=== PATIENT | female | born 1965 | race Two or more races ===

== ENCOUNTER 2020-09-13 11:32 | Outpatient (REF) | payer OTHER, SELFPAY ==
[2020-09-13 13:44] LABS: MANUAL DIFF FLAG NO
[2020-09-13 13:57] LABS: Basophils Absolute Auto 0.1 X10*3/uL (0.0-0.2); Basophils Percent Auto 0.7 % (0-2); Eosinophils Absolute Auto 0.2 X10*3/uL (0.0-0.4); Eosinophils Percent Auto 2.8 % (0-4); Hematocrit 40.3 % (37-47); Hemoglobin 12.9 g/dl (12.0-16.0); Imm Gran Abs Auto 0.02 X10*3/uL (0.00-0.03); Imm Gran Pct Auto 0.3 % (0.0-0.4); Lymphocytes Absolute Auto 1.5 X10*3/uL (1.2-4.9); Lymphocytes Percent Auto 21.3 % (20-40); Mean Corpuscular Hemoglobin 29.7 pg (27.0-33.0); Mean Corpuscular Volume 92.6 fL (80-98); Mean Platelet Volume 11.7 fL (9.4-12.3); Monocytes Absolute Auto 0.5 X10*3/uL (0.1-1.2); Monocytes Percent Auto 6.7 % (2-11); Neutrophils Absolute Auto 4.7 X10*3/uL (2.0-8.3); Neutrophils Percent Auto 68.2 % (45-73); Platelet Count 285 X10*3/uL (160-400); Red Blood Count 4.35 X10*6/uL (4.20-5.50); Red Cell Distribution Width 12.8 % (11.0-16.0); White Blood Count 6.8 X10*3/uL (4.8-10.8)
[2020-09-13 14:30] LABS: Alanine Aminotransferase 37 U/L (0-31); Albumin Level 4.4 g/dL (3.5-5.0); Alkaline Phosphatase 88 U/L (39-117); Anion Gap 11 (12-20); Aspartate Amino Transferase 28 U/L (5-31); Bilirubin Total 0.2 mg/dL (0.0-1.0); Blood Urea Nitrogen 16 mg/dL (9-16); C Reactive Protein 0.13 mg/dL (< or = 0.50); Carbon Dioxide 26 mmol/L (22-29); Chloride 108 mmol/L (96-108); Estimated Glomerular Filt Rate > 60; Glucose Random 80 mg/dL (60-115); Potassium 4.4 mmol/l (3.3-5.1); Sodium 141 mmol/L (135-145); Total Protein 6.8 g/dL (6.5-8.0)
[2020-09-13 14:32] LABS: Calcium 9.9 mg/dL (8.4-10.2)
[2020-09-13 14:42] LABS: Thyroid Stimulating Hormone 2.07 mIU/mL (0.32-4.0); Vitamin D 25-OH Total 24.4 ng/mL (>30)
== END 2020-09-13 11:33 | disposition home or self-care (01) ==
LOC: HO.10HDL 11:32
PROVIDERS: Visit Provider Internal Medicine
DX: R42 Dizziness and giddiness (principal); E78.00 Pure hypercholesterolemia, unspecified; E55.9 Vitamin D deficiency, unspecified; K21.9 Gastro-esophageal reflux disease without esophagitis; M79.89 Other specified soft tissue disorders
CPT/HCPCS: 36415; 80053; 82306; 84439; 84443; 85025; 86140

== ENCOUNTER 2020-11-13 11:47 | Outpatient (REF) | payer OTHER, SELFPAY ==
--- NOTE | 2020-11-13 | XR_ITS ---
EXAMINATION: PAIN X-RAY BILATERAL CLINICAL INFORMATION: Pain COMPARISON: None TECHNIQUE: 3 views of each hand FINDINGS: Bone alignment is normal. No fracture or dislocation is seen. The joint spaces are normal. Soft tissues are normal. XR/XR hand RT min 3V IMPRESSION: Unremarkable exam.
--- NOTE | 2020-11-13 | XR_ITS ---
EXAMINATION: PAIN X-RAY BILATERAL CLINICAL INFORMATION: Pain COMPARISON: None TECHNIQUE: 3 views of each hand FINDINGS: Bone alignment is normal. No fracture or dislocation is seen. The joint spaces are normal. Soft tissues are normal. XR/XR hand LT min 3V IMPRESSION: Unremarkable exam.
== END 2020-11-13 11:48 | disposition home or self-care (01) ==
LOC: HO.XRAY 11:47
PROVIDERS: PCP Internal Medicine; Visit Provider Internal Medicine
DX: Z20.828 Contact with and (suspected) exposure to other viral communicable diseases (principal); M79.642 Pain in left hand; M79.641 Pain in right hand
CPT/HCPCS: 73130

== ENCOUNTER 2020-11-13 13:18 | Outpatient (REF) | payer OTHER, SELFPAY | END 2020-11-13 13:19 | disposition home or self-care (01) | LOC: HO.LNP 13:18 | PROVIDERS: Visit Provider Internal Medicine | DX: M79.642 Pain in left hand (principal); M79.641 Pain in right hand; Z20.828 Contact with and (suspected) exposure to other viral communicable diseases | CPT/HCPCS: U0003 ==

== ENCOUNTER 2020-11-26 12:20 | Outpatient (REF) | payer OTHER, SELFPAY ==
--- NOTE | 2020-11-26 12:27 | XR_ITS ---
EXAMINATION: XR CHEST CLINICAL INFORMATION: Cough, COPD. COMPARISON: None TECHNIQUE: 2 views of the chest were obtained. FINDINGS: No significant abnormality is noted involving the heart, lungs, mediastinum, bony thorax or soft tissues. XR/XR chest 2V IMPRESSION: Unremarkable chest examination.
[2020-11-26 15:19] LABS: Influenza A PCR NEGATIVE (Negative); Influenza B PCR NEGATIVE (Negative); Resp Syncy Virus RNA Qual PCR NEGATIVE (Negative); SARS COV2 PCR INHOUSE NEGATIVE (Negative)
== END 2020-11-26 12:21 | disposition home or self-care (01) ==
LOC: HO.XRAY 12:20
PROVIDERS: PCP Internal Medicine; Visit Provider Internal Medicine
DX: Z20.828 Contact with and (suspected) exposure to other viral communicable diseases (principal); R51.9 Headache, unspecified; R05 Cough
CPT/HCPCS: 0241U; 71046

== ENCOUNTER 2021-08-21 06:48 | Outpatient (REF) | payer OTHER, SELFPAY ==
--- NOTE | ~2021-08-21 | XR_ITS ---
EXAMINATION: XR THORACIC SPINE CLINICAL INFORMATION: Neck pain. Assess for DDD COMPARISON: None TECHNIQUE: 3 views of the thoracic spine were obtained. FINDINGS: There is no fracture or bone destruction seen and the vertebral alignment is normal. At the upper thoracic levels there is suggestion of minimal disc space loss and degenerative endplate change. There is no abnormality of the paraspinal soft tissues. XR/XR thoracic spine 3V IMPRESSION: Mild disc space narrowing and endplate changes at the upper thoracic levels. No acute abnormality.
[2021-08-21 07:49] LABS: Anion Gap 13 (12-20); Blood Urea Nitrogen 16 mg/dL (9-16); C Reactive Protein 0.23 mg/dL (< or = 0.50); Calcium 9.6 mg/dL (8.4-10.2); Carbon Dioxide 23 mmol/L (22-29); Chloride 109 mmol/L (96-108); Estimated Glomerular Filt Rate > 60; Glucose Random 117 mg/dL (60-115); Potassium 4.2 mmol/L (3.3-5.1); Sodium 141 mmol/L (135-145)
[2021-08-21 08:13] LABS: Free T4 (Free Thyroxine) 0.88 ng/dL (0.71-1.85); Thyroid Stimulating Hormone 3.34 uIU/mL (0.32-4.0); Vitamin D 25-OH Total 20.2 ng/mL (>30)
== END 2021-08-21 06:49 | disposition home or self-care (01) ==
LOC: HO.LAB 06:48
PROVIDERS: PCP Internal Medicine; Visit Provider Internal Medicine
DX: M54.9 Dorsalgia, unspecified (principal); E55.9 Vitamin D deficiency, unspecified; K21.9 Gastro-esophageal reflux disease without esophagitis; E03.9 Hypothyroidism, unspecified
CPT/HCPCS: 36415; 72072; 80048; 82306; 84439; 84443; 86140

== ENCOUNTER 2021-10-07 13:58 | Outpatient (REF) | payer OTHER, SELFPAY | END 2021-10-07 13:59 | disposition home or self-care (01) | LOC: HO.LAB 13:58 | PROVIDERS: PCP Internal Medicine; Visit Provider Internal Medicine | DX: Z20.822 Contact with and (suspected) exposure to COVID-19 (principal) | CPT/HCPCS: C9803; U0003; U0005 ==

== ENCOUNTER 2021-11-07 17:00 | Emergency (ER) | payer OTHER, SELFPAY | END 2021-11-07 19:44 | disposition left against medical advice (07) | PROVIDERS: Emergency Provider Emergency Medicine; PCP Internal Medicine | DX: R05.9 Cough, unspecified (principal) ==

== ENCOUNTER 2021-11-08 12:44 | Outpatient (REF) | payer OTHER, SELFPAY ==
--- NOTE | ~2021-11-08 | XR_ITS ---
EXAMINATION: XR CHEST CLINICAL INFORMATION: Cough. COMPARISON: 11/26/2020. TECHNIQUE: 2 views of the chest were obtained. FINDINGS: No significant abnormality is noted involving the heart, lungs, mediastinum, bony thorax or soft tissues. XR/XR chest 2V IMPRESSION: No acute cardiopulmonary process.
== END 2021-11-08 12:45 | disposition home or self-care (01) ==
LOC: HO.HMGCX 12:44
PROVIDERS: PCP Internal Medicine; Visit Provider Physician Assistant Medical
DX: R05.9 Cough, unspecified (principal)
CPT/HCPCS: 71046

== ENCOUNTER 2021-11-08 15:03 | Outpatient (REF) | payer OTHER, SELFPAY ==
[2021-11-08 16:22] LABS: Influenza A PCR NEGATIVE (Negative); Influenza B PCR NEGATIVE (Negative); Resp Syncy Virus RNA Qual PCR NEGATIVE (Negative); SARS COV2 PCR INHOUSE POSITIVE (Negative)
== END 2021-11-08 15:04 | disposition home or self-care (01) ==
LOC: HO.LNP 15:03
PROVIDERS: Visit Provider Physician Assistant Medical
DX: Z20.822 Contact with and (suspected) exposure to COVID-19 (principal); J02.9 Acute pharyngitis, unspecified
CPT/HCPCS: 0241U

== ENCOUNTER 2021-12-25 10:53 | Outpatient (REF) | payer OTHER, SELFPAY ==
[2021-12-25 13:32] LABS: MANUAL DIFF FLAG NO
[2021-12-25 13:33] LABS: Basophils Absolute Auto 0.1 X10*3/uL (0.0-0.2); Basophils Percent Auto 0.8 % (0-2); Eosinophils Absolute Auto 0.1 X10*3/uL (0.0-0.4); Eosinophils Percent Auto 1.4 % (0-4); Hematocrit 39.9 % (37.0-47.0); Hemoglobin 12.8 g/dl (12.0-16.0); Imm Gran Abs Auto 0.03 X10*3/uL (0.00-0.03); Imm Gran Pct Auto 0.4 % (0.0-0.4); Lymphocytes Absolute Auto 1.5 X10*3/uL (1.2-4.9); Lymphocytes Percent Auto 18.8 % (20-40); Mean Corpuscular HGB Conc 32.1 g/dl (31.0-35.0); Mean Corpuscular Hemoglobin 29.6 pg (27.0-33.0); Mean Corpuscular Volume 92.4 fL (80.0-98.0); Mean Platelet Volume 11.5 fL (9.4-12.3); Monocytes Absolute Auto 0.5 X10*3/uL (0.1-1.2); Monocytes Percent Auto 5.9 % (2-11); Neutrophils Absolute Auto 5.8 x10*3/uL (2.0-8.3); Neutrophils Percent Auto 72.7 % (45-73); Platelet Count 253 X10*3/uL (160-400); Red Blood Count 4.32 X10*6/uL (4.20-5.50); Red Cell Distribution Width 13.2 % (11.0-16.0)
[2021-12-25 13:56] LABS: Alanine Aminotransferase 41 U/L (0-31); Alkaline Phosphatase 85 U/L (39-117); Anion Gap 10 (12-20); Aspartate Amino Transferase 27 U/L (5-31); Bilirubin Total 0.2 mg/dL (0.0-1.0); Blood Urea Nitrogen 12 mg/dL (9-16); C Reactive Protein 0.21 mg/dL (< or = 0.50); Carbon Dioxide 25 mmol/L (22-29); Chloride 107 mmol/L (96-108); Estimated Glomerular Filt Rate > 60; Glucose Random 84 mg/dL (60-115); Potassium 4.2 mmol/L (3.3-5.1); Sodium 138 mmol/L (135-145); Total Protein 6.6 g/dL (6.5-8.0)
[2021-12-25 14:13] LABS: Free T4 (Free Thyroxine) 0.91 ng/dL (0.71-1.85); Vitamin D 25-OH Total 24.1 ng/mL (>30)
== END 2021-12-25 10:54 | disposition home or self-care (01) ==
LOC: HO.10HDL 10:53
PROVIDERS: Visit Provider Internal Medicine
DX: R63.4 Abnormal weight loss (principal); K21.9 Gastro-esophageal reflux disease without esophagitis; E55.9 Vitamin D deficiency, unspecified; R94.6 Abnormal results of thyroid function studies; Z86.16 Personal history of COVID-19
CPT/HCPCS: 36415; 80053; 82306; 84439; 84443; 85025; 86140

== ENCOUNTER 2022-12-03 17:20 | Emergency (ER) | payer OTHER, SELFPAY ==
[2022-12-03 18:29] VITALS: BP 137/79; PULSE 98; RESP 20; TEMP 36.9; O2SAT 99; BMI 22.6
[2022-12-03 19:20] LABS: Influenza A PCR NEGATIVE (Negative); Influenza B PCR NEGATIVE (Negative); Resp Syncy Virus RNA Qual PCR NEGATIVE (Negative); SARS COV2 PCR INHOUSE NEGATIVE (Negative)
[2022-12-04 00:17] VITALS: BP 138/81; PULSE 97; RESP 18; TEMP 36.3; O2SAT 97
--- NOTE | 2022-12-04 00:37 | ED.URI ---
HPI - URI/Sore Throat General Chief Complaint: Upper Respiratory Symptoms Stated Complaint: 3 day cough/ Fever/ Body aches Time Seen by Provider: 12/04/22 00:31 Source: patient Mode of arrival: ambulatory Limitations: no limitations History of Present Illness HPI Narrative: Patient comes to the emergency room complaining of 3 days of cough, body aches, subjective fever. Denies nausea vomiting diarrhea or abdominal pain. No UTI symptoms. Related Data Home Medications Medication Instructions Recorded Confirmed atorvastatin 20 mg tablet 20 mg PO DAILY 11/08/21 fluticasone propionate 50 spray intranasal 11/08/21 mcg/actuation nasal spray,suspension mirtazapine 15 mg tablet 15 mg PO BEDTIME 11/08/21 naproxen 500 mg tablet 500 mg PO BID 11/08/21 omeprazole 20 mg capsule,delayed 20 mg PO DAILY 11/08/21 release Previous Rx's Medication Instructions Recorded azithromycin 250 mg tablet See Rx Instructions PO .COMPLEX #6 11/08/21 tabs dextromethorphan-guaifenesin 10 10 ml PO Q4-6H PRN cough #237 mL 11/08/21 mg-100 mg/5 mL oral syrup (Adult Tussin DM) codeine 10 mg-guaifenesin 100 mg/5 10 ml PO Q4-6H PRN cough #118 mL 12/04/22 mL oral liquid ibuprofen 600 mg tablet 600 mg PO Q8H PRN fever or pain 12/04/22 #20 tabs Allergies Allergy/AdvReac Type Severity Reaction Status Date / Time No Known Allergies Allergy Verified 11/08/21 12:11 [No Known Allergies*] Review of Systems Review of Systems: Constitutional : No Weight loss, complaining of fever, fatigue, body aches ENT/Mouth : No Hearing loss, No Ear Pain, No Nasal Congestion, No Sinus Pain, No Hoarseness, No sore throat, No Rhinorrhea, No Swallowing Difficulty Eyes: No Eye Pain, No Swelling, No Redness, No Foreign Body, No Discharge, No Vision Changes Cardiovascular : No Chest Pain, No SOB, No Dyspnea on Exertion, No Orthopnea, No Edema, No Palpitations Respiratory : Complaining of dry Cough, No Sputum, No Wheezing, No Smoke Exposure, No Dyspnea Gastrointestinal : No Nausea, No Vomiting, No Diarrhea, No Constipation, No abdominal Pain, No Hematochezia, No Melena Genitourinary : no irregular bleeding, No Dysuria, No Urinary Frequency, No Hematuria, No Urinary Incontinence, No Urgency, No Flank Pain, No Urinary Flow Changes, No Hesitancy Musculoskeletal : No joint pain, complaining of Myalgias, No Joint Swelling Skin : No Skin Lesions, No rash Neuro : No Weakness, No Numbness, No Paresthesias, No Loss of Consciousness, No Dizziness, No Headache Psych : No Anxiety/Panic, No Depression, No SI/HI/AH/VH, No Social Issues, Heme/Lymph: No Bruising, No Bleeding,No Lymphadenopathy Endocrine : No Polyuria, No Polydipsia, No Temperature Intolerance [facility] Social History Social History Advance Directives: No Advance Directives Information Provided: Yes Physical Exam Vital Signs: Vital Signs: Last Vital Signs Temp 97.3 F 12/04/22 00:17 Pulse 97 12/04/22 00:17 Resp 18 12/04/22 00:17 BP 138/81 12/04/22 00:17 Pulse Ox 97 12/04/22 00:17 O2 Del Method 12/04/22 00:17 BMI result Body Mass Index 22.6 Const: Other: Appearance: Alert. Oriented X3. No acute distress. Well-appearing Eyes: Pupils equal, round and reactive to light. ENT: Pharynx normal. Neck: Normal inspection. Neck supple. No lymph nodes noted. No crepitus CVS: Normal heart rate and rhythm. Pulses normal. Normal S1 and S2 Respiratory: No respiratory distress. Breath sounds normal. No Wheezing. No rales Abdomen: Soft and nontender. No rigidity. No distention. Skin: Skin warm and dry. Normal skin color. Normal skin turgor. Extremities: No lower extremity edema. No Lacerations. No Rash Neuro: Oriented X 3. No motor deficit. No sensory deficit. Moving all extremities. No slurred speech. CN 2 through 12 grossly intact Psych: calm, cooperative, normal affect Course Course Course Narrative: I discussed with the patient she tested negative for COVID and influenza. Patient's oxygen saturation 99% on room air, normal respirations, clear lung sounds. No fever Patient was given Tessalon Perles, p.o. dexamethasone and viscous lidocaine for symptomatic relief. Medical Decision Making Differential Diagnosis Differential Diagnoses: The differential diagnosis associated with the presentation includes (Viral URI, influenza, COVID) Lab Data MDM Lab Attestation statement: I reviewed the patient's lab results. Labs: Lab Results 12/03/22 Range/Units 18:36 Influenza Type A (PCR) NEGATIVE (Negative) Influenza Type B (PCR) NEGATIVE (Negative) RSV RNA Qual (PCR) NEGATIVE (Negative) SARS-CoV-2 RNA (RT-PCR) NEGATIVE (Negative) Discharge Plan Discharge Clinical Impression: Acute bronchitis, viral Patient Disposition: Home, Self-Care Instructions: Acute Bronchitis (ED) Additional Instructions: Please follow-up with your primary care physician tomorrow. If you have any worsening or new symptoms, please return to the emergency room or call 911 Prescriptions: New codeine-guaifenesin 10-100 mg/5 mL liquid 10 ml PO Q4-6H PRN (Reason: cough) Qty: 118 0RF Rx Instructions: Keep away from children ibuprofen 600 mg tablet 600 mg PO Q8H PRN (Reason: fever or pain) Qty: 20 0RF No Action fluticasone propionate 50 mcg/actuation spray,suspension intranasal omeprazole 20 mg capsule,delayed release(DR/EC) 20 mg PO DAILY atorvastatin 20 mg tablet 20 mg PO DAILY naproxen 500 mg tablet 500 mg PO BID mirtazapine 15 mg tablet 15 mg PO BEDTIME azithromycin 250 mg tablet See Rx Instructions PO .COMPLEX Qty: 6 0RF Rx Instructions: take 500 mg today (day 1), then 250 mg for 4 days (days 2-5) PO dextromethorphan-guaifenesin [Adult Tussin DM] 10-100 mg/5 mL syrup 10 ml PO Q4-6H PRN (Reason: cough) Qty: 237 0RF Stand Alone Forms: Work/School Release
[2022-12-04] MEDS: Lidocaine HCl Viscous 2 % 15 ML SOLUTION MUCOUS MEM (01:25)
[2022-12-04] MEDS: dexAMETHasone sod phosphate 4 MG/ML VIAL 6 MG IVPUSH (01:25)
[2022-12-04] MEDS: Benzonatate 100 MG CAPSULE PO (01:26)
== END 2022-12-04 01:29 | disposition home or self-care (01) ==
PROVIDERS: Emergency Provider Emergency Medicine; PCP Internal Medicine
DX: J20.8 Acute bronchitis due to other specified organisms (principal); R05.9 Cough, unspecified; R50.9 Fever, unspecified; M79.10 Myalgia, unspecified site; Z20.822 Contact with and (suspected) exposure to COVID-19
CPT/HCPCS: 0241U; 99283; J1100

== ENCOUNTER 2023-05-20 15:09 | Emergency (ER) | payer OTHER, SELFPAY ==
--- NOTE | ~2023-05-20 | XR_ITS ---
EXAMINATION: XR HAND, LEFT CLINICAL INFORMATION: Pain, fall. COMPARISON: Radiograph of the left wrist 05/20/2023. TECHNIQUE: PA, lateral, and oblique views of the left hand. FINDINGS: Cortical irregularity along the dorsal surface of the wrist on the lateral view, stable compared to 05/20/2023 suspicious for a triquetral injury. Stable irregular sclerosis at the scaphoid waist, likely sequela of the nondisplaced fracture. No interval fractures or malalignment. Redemonstration of negative ulnar variance with mild radiocarpal joint space narrowing and subcortical sclerosis. No erosive changes or chondrocalcinosis. No unexpected radiopaque foreign bodies. XR/XR hand LT min 3V IMPRESSION: 1. Suspect triquetral injury and nondisplaced scaphoid fracture, stable compared to 05/20/2023. 2. No interval fractures or malalignment. 3. 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
--- NOTE | ~2023-05-20 | XR_ITS ---
EXAMINATION: LEFT WRIST, LEFT KNEE, AND LEFT ELBOW CLINICAL INFORMATION: Fall with pain COMPARISON: None. TECHNIQUE: Three-view left elbow, 4 view left wrist, 4 view left knee. FINDINGS: Left elbow: There is no evidence of acute fracture or dislocation of the left elbow. No left elbow effusion is appreciated. Joint spaces appear maintained. Left wrist: There is a sclerotic line through the interpolar region of the scaphoid which may be related to previous healed fracture. About the dorsum of the wrist there is a bony density present which may represent avulsion triquetral fracture or possible dorsal lunate fracture. There is some soft tissue swelling seen in this location. This is an age indeterminate finding. There is negative ulnar variance present. There is some mild spurring of the first carpal metacarpal joint. Joint spaces are maintained. Left knee: There is no evidence of acute fracture or dislocation of the left knee. No left knee effusion is appreciated. Left knee joint spaces maintained. XR/XR knee LT 3V IMPRESSION: No bony abnormality of the left knee identified. No acute fracture or effusion of the left elbow identified. Question old scaphoid fracture. Negative ulnar variance. Bony density about the dorsal wrist which may represent avulsion fracture of the triquetrum or a dorsal lunate fracture of uncertain chronicity. Clinical correlation to site of injury and patient history is suggested.
--- NOTE | ~2023-05-20 | XR_ITS ---
EXAMINATION: LEFT WRIST, LEFT KNEE, AND LEFT ELBOW CLINICAL INFORMATION: Fall with pain COMPARISON: None. TECHNIQUE: Three-view left elbow, 4 view left wrist, 4 view left knee. FINDINGS: Left elbow: There is no evidence of acute fracture or dislocation of the left elbow. No left elbow effusion is appreciated. Joint spaces appear maintained. Left wrist: There is a sclerotic line through the interpolar region of the scaphoid which may be related to previous healed fracture. About the dorsum of the wrist there is a bony density present which may represent avulsion triquetral fracture or possible dorsal lunate fracture. There is some soft tissue swelling seen in this location. This is an age indeterminate finding. There is negative ulnar variance present. There is some mild spurring of the first carpal metacarpal joint. Joint spaces are maintained. Left knee: There is no evidence of acute fracture or dislocation of the left knee. No left knee effusion is appreciated. Left knee joint spaces maintained. XR/XR wrist LT min 3V IMPRESSION: No bony abnormality of the left knee identified. No acute fracture or effusion of the left elbow identified. Question old scaphoid fracture. Negative ulnar variance. Bony density about the dorsal wrist which may represent avulsion fracture of the triquetrum or a dorsal lunate fracture of uncertain chronicity. Clinical correlation to site of injury and patient history is suggested.
--- NOTE | ~2023-05-20 | XR_ITS ---
EXAMINATION: LEFT WRIST, LEFT KNEE, AND LEFT ELBOW CLINICAL INFORMATION: Fall with pain COMPARISON: None. TECHNIQUE: Three-view left elbow, 4 view left wrist, 4 view left knee. FINDINGS: Left elbow: There is no evidence of acute fracture or dislocation of the left elbow. No left elbow effusion is appreciated. Joint spaces appear maintained. Left wrist: There is a sclerotic line through the interpolar region of the scaphoid which may be related to previous healed fracture. About the dorsum of the wrist there is a bony density present which may represent avulsion triquetral fracture or possible dorsal lunate fracture. There is some soft tissue swelling seen in this location. This is an age indeterminate finding. There is negative ulnar variance present. There is some mild spurring of the first carpal metacarpal joint. Joint spaces are maintained. Left knee: There is no evidence of acute fracture or dislocation of the left knee. No left knee effusion is appreciated. Left knee joint spaces maintained. XR/XR elbow LT min 3V IMPRESSION: No bony abnormality of the left knee identified. No acute fracture or effusion of the left elbow identified. Question old scaphoid fracture. Negative ulnar variance. Bony density about the dorsal wrist which may represent avulsion fracture of the triquetrum or a dorsal lunate fracture of uncertain chronicity. Clinical correlation to site of injury and patient history is suggested.
[2023-05-20 15:25] VITALS: BP 102/70; PULSE 92; RESP 18; TEMP 36.7; O2SAT 99; BMI 22.6
--- NOTE | 2023-05-20 15:29 | ED.EXTPRO ---
HPI - Extremity Problem General Chief complaint: Extremity Problem Stated complaint: left hand/Work Injury/fall Time Seen by Provider: 05/20/23 17:25 Source: patient, RN notes reviewed and old records reviewed Mode of arrival: ambulatory History of Present Illness HPI Narrative: 57-YEAR-OLD FEMALE WITH NO SIGNIFICANT PAST MEDICAL HISTORY PRESENTING TO THE ED COMPLAINING OF LEFT KNEE, WRIST, AND ELBOW PAIN S/P MECHANICAL SLIP AND FALL AT WORK. 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 DENIES NUMBNESS, TINGLING, WEAKNESS MD Complaint: extremity pain and extremity swelling Related Data Home Medications Medication Instructions Recorded Confirmed atorvastatin 20 mg tablet 20 mg PO DAILY 11/08/21 fluticasone propionate 50 spray intranasal 11/08/21 mcg/actuation nasal spray,suspension mirtazapine 15 mg tablet 15 mg PO BEDTIME 11/08/21 naproxen 500 mg tablet 500 mg PO BID 11/08/21 omeprazole 20 mg capsule,delayed 20 mg PO DAILY 11/08/21 release Previous Rx's Medication Instructions Recorded azithromycin 250 mg tablet See Rx Instructions PO .COMPLEX #6 11/08/21 tabs dextromethorphan-guaifenesin 10 10 ml PO Q4-6H PRN cough #237 mL 11/08/21 mg-100 mg/5 mL oral syrup (Adult Tussin DM) codeine 10 mg-guaifenesin 100 mg/5 10 ml PO Q4-6H PRN cough #118 mL 12/04/22 mL oral liquid ibuprofen 600 mg tablet 600 mg PO Q8H PRN fever or pain 12/04/22 #20 tabs hydrocodone 5 mg-acetaminophen 325 1 tab PO Q8H PRN pain, severe 3 05/20/23 mg tablet days #5 tabs Allergies Allergy/AdvReac Type Severity Reaction Status Date / Time No Known Allergies Allergy Verified 11/08/21 12:11 [No Known Allergies*] Review of Systems Review of Systems: Constitutional: No Fever, No Chills ENT/Mouth: No Ear Pain, No Nasal Congestion, No sore throat, No Rhinorrhea, No Swallowing Difficulty Cardiovascular: No Chest Pain, No SOB Respiratory: No Cough, No Sputum, No Wheezing Gastrointestinal: No Nausea, No Vomiting, No Diarrhea, No Constipation, No Abdominal pain Musculoskeletal: + joint pain, No Myalgias, + Joint Swelling Skin: No Skin Lesions, No rash Neuro: No Weakness, No Numbness, No Paresthesias Yes all other systems are reviewed and are negative Constitutional: Constitutional: Reports as per [facility] Past Medical History Attestation statement: The following information was validated with the patient. Source: old records reviewed Social History Social History Advance Directives: No Advance Directives Information Provided: No Physical Exam Vital Signs: Vital Signs: Last Vital Signs Temp 98.1 F 05/20/23 15:25 Pulse 92 05/20/23 15:25 Resp 18 05/20/23 15:25 BP 102/70 05/20/23 15:25 Pulse Ox 99 05/20/23 15:25 O2 Del Method Room Air 05/20/23 15:25 BMI result Body Mass Index 22.6 Const: General: cooperative, healthy appearing and no acute distress Orientation/consciousness: patient oriented x3 Limitations: no limitations HEENT: Head: Yes normal to inspection and Yes atraumatic Ears: hearing grossly normal bilaterally General nose exam: Normal external nose present Face and sinus: Yes normal facial exam Eyes: General: appearance normal, both eyes and all related structures EOM: EOMs intact bilaterally Neck: Neck: Yes normal visual inspection and Yes no meningeal signs Resp: Effort & Inspection: normal respiratory effort and no respiratory distress Cardio: Rate: regular rate Peripheral pulses: radial pulses present and ulnar radial pulses present Back/Spine/Pelvis: Other: No midline cervical/thoracic/lumbar spinous tenderness/step-off or deformity Skin: Rashes: no rashes Wounds: no wounds Neuro: General: patient oriented x3, tone normal, no meningeal signs, no focal motor deficits and CN's II-XI intact bilaterally Gait exam (Neuro): Normal gait present Extrem: Other: Left shoulder/elbow without noted deformity or tenderness. Full range of motion intact Left wrist and digits with noted swelling to volar aspect and diffuse tenderness to palpation. No erythema/warmth. Limited ROM to wrist and digits secondary to pain. NV intact No snuffbox tenderness Left knee nontender. Full range of motion intact Course Course Course Narrative: This is an RME: Additional HPI, ROS, PE not included below will be deferred to primary provider. 57-year-old female presenting to the emergency department with complaints of left wrist, left elbow, and left knee pain after slip and fall at work. Patient has tenderness palpation diffusely throughout left wrist and left elbow. Able to pronate and supinate. Patient is ambulatory. Plan: X-rays ordered 1800--XR wrist LT min 3V/XR knee LT 3V/XR elbow LT min 3V IMPRESSION: No bony abnormality of the left knee identified. ? No acute fracture or effusion of the left elbow identified. ? Question old scaphoid fracture. ? Negative ulnar variance. ? Bony density about the dorsal wrist which may represent avulsion fracture of the triquetrum or a dorsal lunate fracture of uncertain chronicity. Clinical correlation to site of injury and patient history is suggested. > RESULTS DISCUSSED WITH PATIENT, INITIAL X-RAYS ORDERED IN TRIAGE, RECOMMENDED ADDITIONAL HAND X-RAY. PATIENT AGREEABLE TO OBTAINING X-RAY HOWEVER DOES NOT WANT TO WAIT FOR RESULTS. WILL PLACE PATIENT IN VOLAR SPLINT DUE TO SUSPECTED ACUTE FRACTURE. RECOMMENDED CLOSE ORTHOPEDIC FOLLOW-UP. Medications Administered Discontinued Medications Generic Name Dose Route Start Last Admin Trade Name Panchoq PRN Reason Stop Dose Admin Ibuprofen 800 mg 05/20/23 18:09 05/20/23 18:16 Ibuprofen 800 Mg Tablet PO 05/20/23 18:10 800 mg ONCE ONE Administration Oxycodone HCl 5 mg 05/20/23 18:09 05/20/23 18:16 Oxycodone Hcl Immed Release 5 Mg Tablet PO 05/20/23 18:10 5 mg ONCE ONE Administration Medical Decision Making Medical Decision Making MDM Narrative: 57-YEAR-OLD FEMALE WITH NO SIGNIFICANT PAST MEDICAL HISTORY PRESENTING TO THE ED COMPLAINING OF LEFT KNEE, WRIST, AND ELBOW PAIN S/P MECHANICAL SLIP AND FALL AT WORK. ON EXAM VITAL SIGNS STABLE, NAD, NONTOXIC APPEARING, PHYSICAL EXAM NOTED ABOVE. CONCERN FOR FRACTURE VERSUS SPRAIN. LOW SUSPICION FOR SEPTIC JOINT/ARTHRITIS. UNLIKELY ACUTE SCAPHOID FRACTURE PLAN: X-RAYS Please refer to course for remaining clinical decision making, interpretation of labs/imaging results, and discussions with consultants and/or family members. Differential Diagnosis Differential Diagnoses: The differential diagnosis associated with the presentation includes As above Radiology Impression Discussion of test interpretation with radiology: I have reviewed the radiologist's reading. External Record Review External record reviewed: Inpatient record, Office record, Outpatient record, Prior outpatient labs, Prior outpatient radiology, Primary care record and Outside ED record Tests considered The following testing was considered but not selected: As above Discharge Plan Discharge Clinical Impression: Fracture of triquetral bone of wrist Patient Disposition: Home, Self-Care Instructions: Wrist Fracture in Adults (ED) Additional Instructions: Your x-ray shows an avulsion fracture of your triquetrum or possible your lunate PLEASE KEEP SPLINT ON, DRY AND CLEAN Ice and elevate. 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 If her fingers become increasingly swollen, numb, discolored, or pain is unbearable remove splint return to the ED immediately Meyer radiograf?a muestra bossman fractura por avulsi?n de meyer piramidal o posiblemente meyer semilunar [place] Hielo y eleva. 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 Si rigoberto dedos se vuelven cada vez m?s hinchados, entumecidos, descoloridos o el dolor es insoportable, retire la f?wally y regrese al servicio de urgencias de inmediato. Prescriptions: New hydrocodone-acetaminophen 5-325 mg tablet 1 tab PO Q8H PRN (Reason: pain, severe) 3 Days Qty: 5 0RF Rx Instructions: Partial Fill upon patient request. No Action codeine-guaifenesin 10-100 mg/5 mL liquid 10 ml PO Q4-6H PRN (Reason: cough) Qty: 118 0RF Rx Instructions: Keep away from children ibuprofen 600 mg tablet 600 mg PO Q8H PRN (Reason: fever or pain) Qty: 20 0RF fluticasone propionate 50 mcg/actuation spray,suspension intranasal omeprazole 20 mg capsule,delayed release(DR/EC) 20 mg PO DAILY atorvastatin 20 mg tablet 20 mg PO DAILY naproxen 500 mg tablet 500 mg PO BID mirtazapine 15 mg tablet 15 mg PO BEDTIME azithromycin 250 mg tablet See Rx Instructions PO .COMPLEX Qty: 6 0RF Rx Instructions: take 500 mg today (day 1), then 250 mg for 4 days (days 2-5) PO dextromethorphan-guaifenesin [Adult Tussin DM] 10-100 mg/5 mL syrup 10 ml PO Q4-6H PRN (Reason: cough) Qty: 237 0RF Referrals: [facility] [place] [facility] [place] [facility] [Provider Group] Stand Alone Forms: Work/School Release Interventions: ED Discharge Assessment Last Done: 05/20/23 19:03 Discharge Date/Time: 05/20/23 19:03
--- NOTE | 2023-05-20 17:46 | PC.NURSE ---
Patient presents after a fall at work. Left arm tender, worse to touch, able to move fingers on effected side.
[2023-05-20] MEDS: Ibuprofen 800 MG TABLET PO (18:16)
[2023-05-20] MEDS: oxyCODONE HCl Immed Release 5 MG TABLET PO (18:16)
== END 2023-05-20 19:03 | disposition home or self-care (01) ==
PROVIDERS: Emergency Provider Emergency Medicine; PCP Internal Medicine
DX: S62.112A Displaced fracture of triquetrum [cuneiform] bone, left wrist, initial encounter for closed fracture (principal); W01.0XXA Fall on same level from slipping, tripping and stumbling without subsequent striking against object, initial encounter; M25.562 Pain in left knee; M25.522 Pain in left elbow; Y93.01 Activity, walking, marching and hiking; Y92.512 Supermarket, store or market as the place of occurrence of the external cause; Y99.0 Civilian activity done for income or pay
CPT/HCPCS: 29125; 73080; 73110; 73130; 73562; 99283; 99284

== ENCOUNTER 2023-06-04 10:57 | Outpatient (REF) | payer OTHER, SELFPAY ==
--- NOTE | ~2023-06-04 | XR_ITS ---
EXAMINATION: XR wrist LT w scaphoid CLINICAL INFORMATION: Reason for Exam M25.532 - Pain in left wrist COMPARISON: Hand radiographs 05/20/2023 TECHNIQUE: Four views of the wrist FINDINGS: No acute fracture or dislocation. Previously seen suspected triquetral fracture and nondisplaced scaphoid fracture not discerned with certainty on today's exam. Mild negative ulnar variance. Degenerative changes of the radiocarpal joint. No soft tissue abnormality. XR/XR wrist LT w scaphoid IMPRESSION: 1. No acute fracture or dislocation. Previously seen suspected triquetral fracture and nondisplaced scaphoid fracture not appreciated on radiographs. 2. Degenerative changes of the radiocarpal joint with mild negative ulnar variance.
== END 2023-06-04 10:58 | disposition home or self-care (01) ==
LOC: HO.HOSX 10:57
PROVIDERS: Visit Provider Orthopaedic Surgery
DX: S62.112A Displaced fracture of triquetrum [cuneiform] bone, left wrist, initial encounter for closed fracture (principal)
CPT/HCPCS: 73110; 99202

== ENCOUNTER 2023-07-05 11:14 | Outpatient (AMB) | payer OTHER, SELFPAY ==
[2023-07-05 11:20] VITALS: BMI 22.6
--- NOTE | 2023-07-05 11:20 | A.OFFVIS_ITS ---
Intake Vital Signs 07/05/23 11:20 Height 5 ft 6 in Weight 140 lb BMI 22.6 Intake Visit Reasons: ov-Fracture of triquetral bone of left wrist Intake Note: Lily 57 yr old female presents today for her follow up visit for her Fracture of triquetral bone of left wrist ROM check s/p slipping and falling at work on 05/20/23.?States she wears her brace when working and sleeping. States she has mild pain with movement. Allergies No Known Allergies [No Known Allergies*] Allergy (Verified 07/05/23 11:44) HPI ov-Fracture of triquetral bone of left wrist HPI Details 57-year-old female who returns to the office today with an educational sign language interpreter for a follow-up of left wrist fracture s/p falling at work, 05/20/23. She continues to have mild pain in her wrist with movement. She states she wears the brace with sleeping and while working. 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 Review of Systems Const All systems reviewed & are unremarkable except as noted in HPI and below Physical Exam Vital Signs: BMI result Body Mass Index 22.6 Const General: cooperative, healthy appearing and no acute distress Orientation/consciousness: patient oriented x3 HEENT Head: Yes normocephalic and Yes atraumatic Eyes EOM: EOMs intact bilaterally Resp Effort & Inspection: normal respiratory effort and able to speak in complete sentences Cardio Jugular venous distension: no JVD Skin General skin exam: turgor normal Rashes: no rashes Neuro General: patient oriented x3 Extrem Other: Evaluation of Left Upper Extremity: The patient is alert, oriented, and in no acute distress Neuro: Median, Ulnar, Radial nerves motor and sensory intact and sensation is normal to the tips of all digits Vascular: Cap refill brisk ROM: She can make a fist and extend all her digits Some discomfort with wrist ROM No tenderness over distal ulna 1/10 tenderness over distal radius mild tenderness over the dorsal aspect of triquetrum No scaphoid tubercle tenderness 0-1/10 tenderness over the scaphoid snuffbox Radiographs: 3 views of the left wrist, plus a scaphoid view, were taken and viewed by me today in clinic, and compared to radiographs from 05/20/22. They show evidence of a dorsal triquetral fracture on the lateral view, now with some evidence of interval bony healing. 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 She will continue to wear the brace while working but will also work on increasing activities. I will have her to return in [address] Bell to discuss return to work without restrictions, sooner if needed. Orders: Orders XR wrist LT min 3V Today M25.532 - Pain in left wrist OT Evaluation and Treatment Today S62.112A - Displaced fracture of triquetrum [cuneiform] bone, left wrist, initial encounter for closed fracture Patient Instructions: Scribed for Myla Robbins PA-C, by Marciano Eng medical physicist, on 07/05/2023 at 11:30 AM EST. I, Myla Robbins PA-C, have personally reviewed and agree with the information entered by the scribe. Coding Level of Care Code Global (24587) Diagnoses Fracture of triquetral bone of left wrist S62.112A
== END 2023-07-05 11:44 | disposition home or self-care (01) ==
PROVIDERS: PCP Internal Medicine; Visit Provider Physician Assistant
DX: S62.112A Displaced fracture of triquetrum [cuneiform] bone, left wrist, initial encounter for closed fracture (principal)
CPT/HCPCS: 99214

== ENCOUNTER 2023-07-05 15:32 | Outpatient (REF) | payer OTHER, SELFPAY ==
--- NOTE | ~2023-07-05 | XR_ITS ---
EXAMINATION: XR WRIST, LEFT CLINICAL INFORMATION: Left wrist pain. COMPARISON: 05/20/2023 and 06/04/2023 TECHNIQUE: PA, lateral, and oblique views of the left wrist. FINDINGS: No acute abnormalities. There is mild ulna negative variance. The previously observed dorsal triquetral fracture is no longer identified and likely healed. No new carpal bone injury. The joint spaces of the wrist are maintained. The metacarpophalangeal joints are normal. No erosions or periostitis. No focal soft tissue swelling. XR/XR wrist LT min 3V IMPRESSION: Compared to 05/20/2023, there appears to be interval healing of a dorsal triquetral fracture. No new abnormalities at the left wrist.
== END 2023-07-05 15:33 | disposition home or self-care (01) ==
LOC: HO.HOSX 15:32
PROVIDERS: Visit Provider Physician Assistant
DX: S62.112D Displaced fracture of triquetrum [cuneiform] bone, left wrist, subsequent encounter for fracture with routine healing (principal)
CPT/HCPCS: 73110; 99212

== ENCOUNTER 2023-08-03 08:50 | Outpatient (REF) | payer OTHER, SELFPAY ==
--- NOTE | ~2023-08-03 | XR_ITS ---
EXAMINATION: XR WRIST, LEFT CLINICAL INFORMATION: Pain. COMPARISON: Radiographs dated 07/05/2023. TECHNIQUE: PA, lateral, and oblique views of the left wrist. FINDINGS: Bony alignment and mineralization are normal. A mild ulnar minus variance is seen. No new fracture or dislocation is seen. The previously noted dorsal triquetral fracture again appears healed. Alignment is anatomic with normal joint spaces. No erosions or abnormal soft tissue calcifications. XR/XR wrist LT min 3V IMPRESSION: The patient's previously noted dorsal triquetral fracture again appears healed. No new fracture or dislocation is seen.
== END 2023-08-03 08:51 | disposition home or self-care (01) ==
LOC: HO.HOSX 08:50
PROVIDERS: Visit Provider Orthopaedic Surgery
DX: S62.112D Displaced fracture of triquetrum [cuneiform] bone, left wrist, subsequent encounter for fracture with routine healing (principal); M25.532 Pain in left wrist; W19.XXXD Unspecified fall, subsequent encounter
CPT/HCPCS: 73110

== ENCOUNTER 2023-08-03 11:19 | Outpatient (AMB) | payer OTHER, SELFPAY ==
--- NOTE | 2023-08-03 12:04 | A.OFFVIS_ITS ---
Intake Vital Signs 08/03/23 12:07 Height 5 ft 6 in Weight 140 lb BMI 22.6 Intake Visit Reasons: OV-Left Wrist Intake Note: Lily 57 yr old female presents today for her follow up visit for her Fracture of triquetral bone of left wrist ROM check? s/p slipping and falling at work on 05/20/23. States attending OT with little improvement. Allergies No Known Allergies [No Known Allergies*] Allergy (Verified 08/03/23 12:07) HPI OV-Left Wrist HPI Details Lily is a 57 year old right hand dominant primarily Yi speaking woman who returns to discuss her left dorsal triquetral avulsion fracture, from a work-related injury to her left wrist, DOI: 05/20/23. This has been managed non-operatively and she has been attending OT hand therapy. She continues to complain of pain and stiffness in her left wrist. It sounds like she still has to do heavier activities at work at [employer], because they are under staff. 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 [facility] Medical History Anxiety Depressed High cholesterol Social History Current occupational status: employed Current occupation: [employer] / rt hand Physical Exam Vital Signs: BMI result Body Mass Index 22.6 Const General: cooperative, healthy appearing and no acute distress Orientation/consciousness: patient oriented x3 HEENT Head: Yes normocephalic and Yes atraumatic Eyes EOM: EOMs intact bilaterally Resp Effort & Inspection: normal respiratory effort and able to speak in complete sentences Cardio Jugular venous distension: no JVD Skin General skin exam: turgor normal Rashes: no rashes Neuro General: patient oriented x3 Extrem Other: Evaluation of Left Upper Extremity: The patient is alert, oriented, and in no acute distress Neuro: Median, Ulnar, Radial nerves motor and sensory intact and sensation is normal to the tips of all digits Vascular: Cap refill brisk ROM: She can make a fist and extend all her digits Some discomfort with wrist ROM Full symmetrical pronosupination Extension of ~65 degrees flexion of ~65 degrees She has some discomfort at the extremes of flexion and extension over the dorsal aspect of wrist No swelling about the wrist. Psych Appearance: grossly normal Affect: normal affect Attitude: cooperative Assessment & Plan Assessment & Plan (1) Fracture of triquetral bone of left wrist: Code(s): S62.112A - Displaced fracture of triquetrum [cuneiform] bone, left wrist, initial encounter for closed fracture Plan Assessment & Plan: 1. Left dorsal triquetral avulsion fracture From a fall, DOI: 05/20/23 This is a work-related injury I educated her about this condition This has been managed non-operatively She will continue to wear her velcro wrist splint at work only at this time She will continue to work on ROM exercises at home and with OT hand therapy I discussed activity modification, she is to use her hand for light & medium weight activities at this time She was given a note for work to continue on light duty, wearing her splint with a 5lb weight limit for the next 6 weeks She will follow up in 6 weeks with TIKA Lanza for a ROM check. I anticipate she should return to full duty at that appointment Scribed for Vita Bell MD by Vijay Crain, medical technician assistant, on 08/03/23 at 12:55 PM, EST. Orders: Orders XR wrist LT min 3V Today M25.532 - Pain in left wrist Coding Level of Care Code Global (36863) Diagnoses Fracture of triquetral bone of left wrist S62.112A
[2023-08-03 12:07] VITALS: BMI 22.6
== END 2023-08-03 13:03 | disposition home or self-care (01) ==
PROVIDERS: PCP Internal Medicine; Visit Provider Orthopaedic Surgery
DX: S62.112A Displaced fracture of triquetrum [cuneiform] bone, left wrist, initial encounter for closed fracture (principal)
CPT/HCPCS: 99213

== ENCOUNTER 2023-08-10 15:00 | Outpatient (RCR) | payer OTHER, SELFPAY ==
--- NOTE | 2023-07-15 12:06 | MHC.OT.EP ---
[address] [phone] Occupational Therapy Plan of Care Patient Name: Lily Ferreira Date of Evaluation: 07/15/23 Diagnosis: Left wrist fracture Pain Location: Pain in left wrist Current: 2/10 Best: 0/10 Worst: 6/10 Pain Score: 2 Pain Scale Used: Numeric (0 - 10) Aggravating Factors: Forceful grasp, wrist flexion Alleviating Factors: Wearing supportive brace Assessment: Pt is a 57 y/o female referred to OT s/p L wrist fracture of triquetral bone that occured when she slipped and fell at work. Pt. is doing well overall with 2/10 pain in L wrist with activity and slight stiffness with wrist flexion. Gross grasp is 10# compared to 20# on the right. Pt. is currently on light duty at work and wearing soft pre-ge[place] wrist brace while there. Pt would benefit from skilled OT to normalize hand function and improve strength for safe return to work. Frequency and Duration: The patient will be seen 2x/wk for 4 weeks Short Term Goals: Pain free with BADL's/IADL's Gross grasp >20# L wrist flexion >55 degrees IND with progression of HEP Fci Goals: Same as above Treatment Plan: Therapeutic Exercise Therapeutic Activity Home Exercise Program Patient Education Ultrasound Paraffin Fluidotherapy MHP Joint Mobilization Soft Tissue Mobilization Kinesiotaping Electronically Signed By: Vicenta Yoder MS OTR/L Please Sign and return to therapist. Thank you once again for your referral.
== END 2023-09-23 14:35 | disposition home or self-care (01) ==
LOC: HO.OT 15:00
PROVIDERS: PCP Internal Medicine; Visit Provider Physician Assistant
DX: S62.112D Displaced fracture of triquetrum [cuneiform] bone, left wrist, subsequent encounter for fracture with routine healing (principal)
CPT/HCPCS: 97110; 97165

== ENCOUNTER 2023-09-15 09:17 | Outpatient (AMB) | payer OTHER, SELFPAY ==
--- NOTE | 2023-09-15 09:21 | A.OFFVIS_ITS ---
Intake Vital Signs 09/15/23 09:22 Height 5 ft 6 in Weight 140 lb BMI 22.6 Intake Visit Reasons: OV - left wrist pain, ROM check Intake Note: Lily 57 yr old female presents for a ROM check for a fracture of triquetral bone of left wrist ROM check s/p slipping and falling at work on 05/20/23. Patient reports pain comes and goes. Patient will use velcro wrist brace at work and feels stiffness/pain after removing. Complaints of swelling at MCP in middle finger. Allergies No Known Allergies [No Known Allergies*] Allergy (Verified 09/15/23 09:27) HPI OV - left wrist pain, ROM check HPI Details 57-year-old female who [facility]-up of left wrist fracture s/p slipping and falling at work, 05/20/23. She continues to have intermittent pain in her wrist as well as swelling at MCP of the middle finger. She is using the Velcro wrist brace at work but she experiences stiffness and pain after removing. 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 No swelling or ecchymosis. She has full ROM. She can supinate and pronate without pain. NVI. Assessment & Plan Assessment & Plan (1) Fracture of triquetral bone of left wrist: Code(s): S62.112A - Displaced fracture of triquetrum [cuneiform] bone, left wrist, initial encounter for closed fracture Qualifiers: Encounter type: subsequent encounter Fracture type: closed Fracture alignment: nondisplaced Fracture healing: with routine healing Qualified Code(s): S62.115D - Nondisplaced fracture of triquetrum [cuneiform] bone, left wrist, subsequent encounter for fracture with routine healing Plan She is already working full duty without restrictions so she will con this activity. If symptoms persist or worsens, patient will contact the office, otherwise follow-up as needed. Patient Instructions: Scribed for Myla Robbins PA-C, by Marciano Eng medical detail representative, on 09/15/2023 at 9:30 AM EST. IMyla PA-C, have personally reviewed and agree with the information entered by the scribe. Coding Level of Care Code Global (61563) Diagnoses Closed nondisplaced fracture of triquetrum of left wrist with routine healing, subsequent encounter S62.115D Encounter type: subsequent encounter Fracture type: closed Fracture alignment: nondisplaced Fracture healing: with routine healing
[2023-09-15 09:22] VITALS: BMI 22.6
== END 2023-09-15 09:57 | disposition home or self-care (01) ==
PROVIDERS: PCP Internal Medicine; Visit Provider Physician Assistant
DX: S62.115D Nondisplaced fracture of triquetrum [cuneiform] bone, left wrist, subsequent encounter for fracture with routine healing (principal)
CPT/HCPCS: 99213

== ENCOUNTER → 2023-09-15 09:17 | Outpatient (BNVA) | payer OTHER, SELFPAY | PROVIDERS: PCP Internal Medicine; Visit Provider Physician Assistant | DX: S62.115D Nondisplaced fracture of triquetrum [cuneiform] bone, left wrist, subsequent encounter for fracture with routine healing (principal) | CPT/HCPCS: 99212 ==

== ENCOUNTER 2023-12-29 14:28 | Emergency (ER) | payer OTHER, SELFPAY ==
--- NOTE | ~2023-12-29 | XR_ITS ---
EXAMINATION: CHEST 2 VIEWS CLINICAL INFORMATION: sob, cough. COMPARISON: 11/08/2021. TECHNIQUE: PA and lateral views of the chest obtained. FINDINGS: The lungs are well expanded. No focal infiltrate, effusion, edema, or pneumothorax. Cardiac and mediastinal silhouettes are within normal limits for technique. No acute bony abnormality seen XR/XR chest 2V IMPRESSION: No evidence of acute disease
[2023-12-29 15:10] VITALS: BP 150/70; PULSE 100; RESP 16; TEMP 36.5; O2SAT 100; BMI 21.6
--- NOTE | 2023-12-29 15:16 | ED.GENADULT ---
HPI - General Adult General Stated complaint: Not Feeling Well COVID 2 Wks Ago Time Seen by Provider: 12/29/23 16:25 Source: patient Mode of arrival: ambulatory Limitations: no limitations History of Present Illness HPI narrative: Patient is a 58 yr old female with no significant past medical history presenting with a cough for 1 day. She reports she was diagnosed with COVID about 2 weeks and had been asymptomatic up until last night. Cough is nonproductive. Now she is reporting chills, constant sore throat, congestion, and headache. Patient took medication last night with minimal relief. Denies fever, ear pain, SOB, chest pain, n/v/d, constipation or abdominal pain, recent sick contacts or recent travel. Related Data Home Medications Medication Instructions Recorded Confirmed atorvastatin 20 mg tablet 20 mg PO DAILY 11/08/21 fluticasone propionate 50 spray intranasal 11/08/21 mcg/actuation nasal spray,suspension mirtazapine 15 mg tablet 15 mg PO BEDTIME 11/08/21 naproxen 500 mg tablet 500 mg PO BID 11/08/21 omeprazole 20 mg capsule,delayed 20 mg PO DAILY 11/08/21 release mirtazapine 30 mg tablet 30 mg PO BEDTIME 06/04/23 quetiapine 50 mg tablet 50 mg PO BEDTIME PRN 06/04/23 zolpidem 5 mg tablet 5 mg PO BEDTIME PRN 06/04/23 Previous Rx's Medication Instructions Recorded codeine 10 mg-guaifenesin 100 mg/5 10 ml PO Q4-6H PRN cough #118 mL 12/04/22 mL oral liquid ibuprofen 600 mg tablet 600 mg PO Q8H PRN fever or pain 12/04/22 #20 tabs albuterol sulfate 90 mcg/actuation 2 inh inhalation Q4-6H PRN 12/29/23 breath activated powder inhaler shortness of breath or wheezing #1 ea benzonatate 100 mg capsule 100 mg PO BID PRN cough #20 caps 12/29/23 doxycycline hyclate 100 mg capsule 100 mg PO BID 10 days #20 caps 12/29/23 prednisone 20 mg tablet 40 mg (2 x 20 mg) PO DAILY 5 days 12/29/23 #10 tabs Allergies Allergy/AdvReac Type Severity Reaction Status Date / Time No Known Allergies Allergy Verified 09/15/23 09:27 [No Known Allergies*] Review of Systems Review of Systems: Constitutional : No Weight loss, No Fever, + Chills, + Fatigue, No Malaise ENT/Mouth : + sore throat, + Rhinorrhea Eyes: + ear discomfort. No Eye Pain, No Swelling, No Redness Cardiovascular : No Chest Pain, No SOB, No Dyspnea on Exertion, No Orthopnea, No Edema, No Palpitations Respiratory : + Cough, No Sputum, No Wheezing Gastrointestinal : No Nausea, No Vomiting, No Diarrhea, No Constipation, No abdominal Pain, No Hematochezia, No Melena Genitourinary : No Dysuria, No Urinary Frequency, No Hematuria Musculoskeletal : No joint pain, No Myalgias, No Joint Swelling Skin : No Skin Lesions, No rash Neuro : No Weakness, No Numbness, No Dizziness, + Headache Psych : No Anxiety/Panic, No Depression Heme/Lymph: No Bruising, No Bleeding, No Lymphadenopathy Endocrine : No Polyuria, No Polydipsia All other systems reviewed and are negative Yes all other systems are reviewed and are negative [facility] Past Medical History Medical History Anxiety Depressed High cholesterol Social History Social History Advance Directives: No Advance Directives Information Provided: No Current occupational status: employed 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 Oriented X3.? No acute distress.?Patient appears fatigued and cold, bundled in a heavy jacket and blanket. Head: Normocephalic, atraumatic, no step-offs or deformities Eyes: Pupils equal, round and reactive to light.? ENT: + pharynx erythematous. No tonsilar exudate or edema. + erythematous external ear canals bilaterally with small clear effusion behind right TM. No pain with manipulation of external ears bilaterally. No mastoid tenderness. Neck: Normal inspection.? Neck supple.? CVS: Normal heart rate and rhythm.? Pulses normal.? Respiratory: No respiratory distress.? Breath sounds normal.? Abdomen: Soft and nontender.? Skin: Skin warm and dry.? Normal skin color.? Normal skin turgor.? Extremities: No lower extremity edema.? No calf ttp. 5/5 strength to bilateral upper and lower extremities Back: No midline tenderness, no C-spine tenderness, full range of motion, no CVA tenderness bilaterally Neuro: Oriented X 3.? No motor deficit.? No sensory deficit. CN 2-12 intact Course Course Course Narrative: RME: 58 yold female with URI symptoms. had COvid on december 04, but was astympatomtic. now has symptoms since last night Reevaluation(s) Reevaluation #1: Patient is visibly fatigued and bundled in her jacket/blanket. Patient developed 102.1 oral temperature. Tylenol ordered for headache and fever. Will treat with doxycycline for acute otitis media as it covers for developing pneumonia. Time: 16:55 Reevaluation #2: Educated patient on diagnosis and treatment plan, answered all question, patient verbalizes understanding. At this time patient will be discharged home, advised to return with new or worsening symptoms. Educated on worrisome signs and symptoms and when to return. At this time I feel comfortable discharge home. Medications Administered Discontinued Medications Generic Name Dose Route Start Last Admin Trade Name Panchoq PRN Reason Stop Dose Admin Acetaminophen 975 mg 12/29/23 16:42 12/29/23 17:21 Acetaminophen 325 Mg Tablet PO 12/29/23 16:43 975 mg ONCE ONE Administration Guaifenesin 5 ml 12/29/23 16:42 12/29/23 17:21 Guaifenesin 100 Mg/5 Ml Liquid PO 12/29/23 16:43 5 ml ONCE ONE Administration Medical Decision Making Medical Decision Making [facility] Narrative: Patient is a 58 yr old female with no significant past medical history presenting with a cough, chills, sore throat, congestion and headache for 1 day. She reports she was diagnosed with COVID 2 weeks ago and had been asymptomatic up until last night when she developed a cough. PE significant for erythematous posterior pharynx, nasal congestion. Pulmonary exam benign. Most likely viral URI vs acute otitis media vs pneumonia. Unlikely sepsis, bronchitis, sinusitis, strep throat, COVID/influenza serology negative, mastoiditis. Plan labs, pain management, fever managment Differential Diagnosis Differential Diagnoses: The differential diagnosis associated with the presentation includes Most likely viral URI vs acute otitis media vs pneumonia. Unlikely sepsis, bronchitis, sinusitis, strep throat, COVID/influenza serology negative, mastoiditis. Admission/Observation Consideration of admission/observation: Escalation of care including admission/observation considered Lab Data MDM Lab Attestation statement: I reviewed the patient's lab results. COVID, strep and influenza negative Labs: Lab Results 12/29/23 Range/Units 15:19 COVID-19 (ANNIE) Negative (Negative) COVID-19 Clin Com See Note Influenza Type A (LUIS MANUEL) Negative (Negative) Influenza Type B (LUIS MANUEL) Negative (Negative) Influenza A & B Note See Note S. pyogenes GrpA LUIS MANUEL Negative (Negative) Independent Interpretation I performed an independent interpretation of an: Plain X-Ray Radiology Impression Discussion of test interpretation with radiology: I have reviewed the radiologist's reading. External Record Review External record reviewed: Inpatient record, Outpatient record, Prior outpatient labs, Prior outpatient radiology, Primary care record and Outside ED record Core Measures AMI core measures followed: Yes Discharge Plan Discharge Clinical Impression: Bronchitis Otitis media Qualifiers: Otitis media type: unspecified Chronicity: acute Qualified Code(s): H66.90 - Otitis media, unspecified, unspecified ear Patient Disposition: Home, Self-Care Instructions: Ear Infection (ED), Acute Bronchitis (ED) Additional Instructions: Take your medications as prescribed. If you were prescribed antibiotics today, it is important that you take your medication to their entirety, do not skip any doses, do not finish them early. Follow-up with your primary care provider this week. Return to the emergency department with new or worsening symptoms. Such as fevers, chills, chest pain, shortness of breath, nausea, vomiting, dizziness, headache, vision changes, lethargy In case of emergency call 911 Prescriptions: New doxycycline hyclate 100 mg capsule 100 mg PO BID 10 Days Qty: 20 0RF benzonatate 100 mg capsule 100 mg PO BID PRN (Reason: cough) Qty: 20 0RF albuterol sulfate 90 mcg/actuation aerosol powdr breath activated 2 inh inhalation Q4-6H PRN (Reason: shortness of breath or wheezing) Qty: 1 0RF prednisone 20 mg tablet 40 mg PO DAILY 5 Days Qty: 10 0RF No Action codeine-guaifenesin 10-100 mg/5 mL liquid 10 ml PO Q4-6H PRN (Reason: cough) Qty: 118 0RF Rx Instructions: Keep away from children ibuprofen 600 mg tablet 600 mg PO Q8H PRN (Reason: fever or pain) Qty: 20 0RF fluticasone propionate 50 mcg/actuation spray,suspension intranasal omeprazole 20 mg capsule,delayed release(DR/EC) 20 mg PO DAILY atorvastatin 20 mg tablet 20 mg PO DAILY naproxen 500 mg tablet 500 mg PO BID mirtazapine 15 mg tablet 15 mg PO BEDTIME quetiapine 50 mg tablet 50 mg PO BEDTIME PRN zolpidem 5 mg tablet 5 mg PO BEDTIME PRN mirtazapine 30 mg tablet 30 mg PO BEDTIME Referrals: Hans Dominique MD [Primary Care Provider] - 2 days Stand Alone Forms: Work/School Release Interventions: ED Discharge Assessment Last Done: 12/29/23 17:30 Discharge Date/Time: 12/29/23 17:30
[2023-12-29 15:40] LABS: COVID-19 Test Negative (Negative); IDNOW Serial# 08D9AD1C
[2023-12-29 15:50] LABS: IDNOW Serial# 152EDE1D; Influenza A Negative (Negative); Influenza B2 Negative (Negative)
[2023-12-29 15:53] LABS: IDNOW Serial# 58CA691E
[2023-12-29 15:54] LABS: Strep A Nucleic Acid Negative (Negative)
[2023-12-29 17:05] VITALS: BP 148/68; PULSE 99; RESP 16; TEMP 38.9; O2SAT 99
[2023-12-29] MEDS: Acetaminophen 325 MG TABLET 975 MG PO (17:21)
[2023-12-29] MEDS: guaiFENesin 100 MG/5 ML LIQUID PO (17:21)
--- NOTE | 2023-12-29 17:29 | PC.NURSE ---
pt a&ox3, pt noted to be febrile, pt medicated for fever per order, medicated for cough per order, lungs clear/diminished, pt to be discharged with prescriptions
== END 2023-12-29 17:30 | disposition home or self-care (01) ==
PROVIDERS: Physician Assistant; Emergency Provider Emergency Medicine; PCP Internal Medicine
DX: J40 Bronchitis, not specified as acute or chronic (principal); H66.91 Otitis media, unspecified, right ear; R50.9 Fever, unspecified; Z11.52 Encounter for screening for COVID-19; E78.00 Pure hypercholesterolemia, unspecified; Z79.899 Other long term (current) drug therapy; Z79.02 Long term (current) use of antithrombotics/antiplatelets
CPT/HCPCS: 71046; 87502; 87635; 87651; 99283; 99284

== ENCOUNTER 2025-01-08 15:02 | Outpatient (REF) | payer OTHER, SELFPAY ==
[2025-01-08 17:22] LABS: Influenza A PCR NEGATIVE (Negative); Influenza B PCR NEGATIVE (Negative); Resp Syncy Virus RNA Qual PCR NEGATIVE (Negative); SARS COV2 PCR INHOUSE NEGATIVE (Negative)
== END 2025-01-08 15:03 | disposition home or self-care (01) ==
LOC: HO.LAB 15:02
PROVIDERS: PCP Internal Medicine; Visit Provider Internal Medicine
DX: J02.9 Acute pharyngitis, unspecified (principal); R51.9 Headache, unspecified; R05.9 Cough, unspecified
CPT/HCPCS: 0241U

== ENCOUNTER 2025-08-22 08:06 | Outpatient (AMB) | payer OTHER, SELFPAY ==
--- NOTE | 2025-08-22 08:08 | MHC.PC.OV ---
Vital Signs 08/22/25 08:18 Height 5 ft 6 in Weight 58.513 kg BMI 20.8 BP 128/76 Blood Pressure Location Rt brachial Position Sitting Respiration 18 Pulse 103 H Pulse Source Pulse Oximeter Temp 97.2 F Temp Source Temporal Artery Scan Pulse Oximetry (%) 97 Oxygen Delivery Method Room Air Intake Visit Reasons: Physical-Trip Dewer Required: No Accompanied by: Self / Same As Patient Allergies No Known Allergies (No Known Allergies*) Allergy (Verified 08/22/25 08:08) Medication List - Last Reviewed 08/22/25 by Ana Mahmood MA dextromethorphan-guaifenesin 10-200 mg/15 mL 10 mL PO Q6H fluticasone propionate 50 mcg/actuation (Allergy Relief (fluticasone)) 2 sprays intranasal DAILY loperamide (Imodium A-D) 2 mg PO Q2-4H PRN loratadine (Allergy Relief (loratadine)) 10 mg PO DAILY mirtazapine 15 mg PO BEDTIME nicotine (polacrilex) (Nicorette) 2 mg buccal Q1H zolpidem 5 mg PO BEDTIME Tobacco use date assessed: 08/22/25 Dental Screening Dental Screen Date: 08/22/25 Did you have a dental visit in the last 12 months?: No Did you have a dental problem in the last 6 months where you did not have access to dental care?: No Was dental information given to patient?: Yes HPI HPI Comments History of Present Illness Details 59-year-old female with history of GERD, hypercholesterolemia, major depressive disorder, insomnia, nicotine dependence presenting to the office today for management of chronic conditions and to establish care. She is a former patient of Dr. Dominique and has not been seen in about 1 year or so. Lives with her son, 38. She is moving out to do living conditions, needs repairs and rent increasing rent. Otherwise does feel safe. 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 Not drinking alcohol. Smoking cigarettes- 4 per day. No illicit drugs. No marijuana. She is following a healthy diet per her report but does not exercise. Hypercholesterolemia-due for lipid panel, no longer on statin GERD-not on PPI or H2 tim. Controlled overall Major depressive disorder-discontinued all of her medications. Was seeing psychiatry- Krystal Dunaway [facility], appt yesterday. Taking mirtazepine and ambien Concerns: URI-Has headache, fatigue, subjective fevers, dry cough, throat irritation (had pain but resolved), myalgia. Has runny nose, no congestion. No sick contacts. No sob, cp Health maintenance: History of cervical cancer-has not seen senior etl developer or had Pap smear in over 5 years. Did undergo chemo and radiation in [place] but did not undergo hysterectomy Overdue for mammograms Overdue for colonoscopy-reports history of colon polyp, unclear type, was performed at an unknown facility in [place] about 8-9 years ago Reviewed past medical, surgical, family, social history ROS: General: No fevers, malaise, unintentional weight loss HEENT: No blurred vision, diplopia. See HPI Neck - no adenopathy Cardiovascular: No chest pain, palpitations, or leg edema Respiratory: See HPI Breast: No pain, palpable lumps, nipple inversion GI: No dysphagia, odynophagia, globus sensation. No abdominal pain, nausea, vomiting, diarrhea, constipation, melena, hematochezia : No dysuria, hematuria, increased urinary frequency, decreased urinary output. 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 No AH/VH. No SI/HI Skin: No rashes or lesions EXAM: Constitutional - Awake and Alert, No apparent distress Eyes - PERRLA, EOMI. Anicteric Ears - external ears normal, canals clear, TMs intact and pearly loredo with good cone of light Nose- septum midline, nares clear. Maxillary and frontal sinus tenderness Mouth/throat- mucosa moist, tongue and uvula midline, no erythema/edema or tonsillar adenopathy. Neck-trachea midline, thyroid symmetric without palpable nodules. Cervical adenopathy noted Cardiovascular - S1S2, RRR, No edema Respiratory - Normal lung expansion, Normal respiratory effort, No respiratory distress, CTA bilaterally Gastrointestinal - NT / ND; +BS; No rebound or guarding - No CVA tenderness Extremities - no calf tenderness bilaterally, no swelling Musculoskeletal - Normal inspection, normal ROM Skin - Warm/Dry, no concerning lesions Neurological - Alert & oriented x3, CN II-XII in tact, 5/5 strength BUE and BLE, 2+ patellar reflexes, sensation intact Psychological - Appropriate affect PFSH Medical History (Updated 08/22/25 @ 09:08 by TIKA Pride) Personal history of other colon polyps History of cervical cancer High cholesterol Depressed Anxiety Surgical History (Updated 08/22/25 @ 08:43 by TIKA Pride) S/P breast biopsy S/P wrist surgery Family History (Updated 08/22/25 @ 08:43 by TIKA Pride) Maternal Aunt Breast cancer Maternal Uncle Stomach cancer Social History Housing: Apartment Patient Tobacco Use Status: Current everyday Tobacco user Tobacco use type: Cigarette Cigarettes Per Day: 4 Years Smoked: started at 17 years old e-Cigarette/Vaping Use: Never Used service: No Current occupational status: employed 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 1. Little interest or pleasure in doing things: several days 2. Feeling down, depressed, or hopeless: several days 3. Trouble falling or staying asleep, or sleeping too much: several days 4. Feeling tired or having little energy: several days 5. Poor appetite or overeating: several days 6. Feeling bad about yourself - or that you are a failure or have let yourself or your family down: several days 7. Trouble concentrating on things, such as reading the newspaper or watching television: not at all 8. Moving or speaking so slowly that other people could have noticed. Or the opposite - being so fidgety or restless that you have been moving around a lot more than usual: not at all 9. Thoughts that you would be better off or of hurting yourself in some way: not at all Total score: 6 Depression Screening Interpretation: Positive Depression Screening Done: Yes 32861 - PHQ-9 Billing: Yes Source: Developed by Drs. Valdo San, Aracelis Wang, Ernesto Laird and colleagues, with an educational deacon from [employer]. Thrive Questionnaire Date Thrive assessed: 08/22/25 I am a: Patient What is your living situation today?: I have a steady place to live Within the past 12 months, did the food you bought not last and you didn't have the money to get more?: Never true Within the past 12 months, did you worry whether your food would run out before you got money to buy more?: Never true Do you have trouble paying for medicines?: No Do you have trouble getting transportation to medical appointments?: No Do you have trouble paying your heating and electricity bill?: No Do you have trouble taking care of your child, family member or friend?: No Do you have trouble with day-to-day activities such as bathing, preparing meals, shopping, managing finances, etc.?: No Are you currently unemployed and looking for a job?: No Are you interested in more education?: No Please select the resources that you would like help with: None Currently or been in a relationship where the following occur: No concerns reported THRIVE Score: 0 AUDIT C Alcohol Use Questionnaire (AUDIT-C) 1. How often do you have a drink containing alcohol?: Never 3. How often do you have six or more drinks on one occasion?: Never Total Score: 0 EMERY-7 AMB Questionnaire EMERY-7 Date EMERY - 7 assessed: 08/22/25 Feeling nervous, anxious, or on edge: 1 = Several days Not being able to stop or control worryin = Nearly every day Worrying too much about different things: 3 = Nearly every day Trouble relaxin = Not at all Being so restless that it is hard to sit still: 0 = Not at all Becoming easily annoyed or irritable: 1 = Several days Feeling afraid as if something awful might happen: 2 = More than half the days Total EMERY-7 score (0-4 normal; 5-9 mild; 10-14 moderate; 15-21 severe): 10 Source: Developed by Drs. Valdo San, Aracelis Wang, Ernesto Laird and colleagues, with an educational deacon from [employer]. EMERY-7 Assessment Billing EMERY-7 Assessment Tool: EMERY-7 Assessment 57141 Physical exam (Primary Care) Vital Signs: Last Vital Signs Temp 97.2 F 08/22/25 08:18 Pulse 103 H 08/22/25 08:18 Resp 18 08/22/25 08:18 BP 128/76 08/22/25 08:18 Pulse Ox 97 08/22/25 08:18 Oxygen Delivery Method Room Air 08/22/25 08:18 BMI result Body Mass Index 20.8 Tobacco/Smoking Status: Tobacco use Status Tobacco use date assessed 08/22/25 08/22/25 08:10 Patient Tobacco Use Status Current everyday Tobacco 08/22/25 08:20 Tobacco use type Cigarette 08/22/25 08:20 e-Cigarette/Vaping Use Never Used 08/22/25 08:20 PHQ-9: PHQ-9 Score PHQ-9: Total score 6 08/22/25 08:54 Depression Screening Interpretation: Positive Thrive Assessment: Date of Thrive Assessment Date Thrive assessed 08/22/25 08/22/25 08:54 Currently or been in a relationship where the following occur: No concerns reported Coding Level of Care Code New Pt Prev Care 40-64y(43766) Diagnoses Routine medical exam Z00.00 Depressed F32.A High cholesterol E78.00 History of cervical cancer Z85.41 Upper respiratory infection J06.9 Additional Codes PHQ-9 - 14175 - PHQ-9 Billing: Yes ([id number]) EMERY-7 Assessment Billing - EMERY-7 Assessment Tool: EMERY-7 Assessment 48865 ([id number]) Assessment & Plan Assessment & Plan (1) Routine medical exam: Code(s): Z00.00 - Encounter for general adult medical examination without abnormal findings (2) Depressed: Code(s): F32.A - Depression, unspecified Category: Medical Plan: Uncontrolled. PHQ-9 shows mild depression with score of 6, emery 7 score 10. Advised to continue following with psychiatrist and take medications as prescribed. (3) High cholesterol: Code(s): E78.00 - Pure hypercholesterolemia, unspecified Category: Medical Plan: Lipid panel ordered. (4) History of cervical cancer: Comment: chemo, radiation. No hysterectomy [place], age 17 Code(s): Z85.41 - Personal history of malignant neoplasm of cervix uteri Category: Medical Plan: Faith Doctor referral placed (5) Upper respiratory infection: Code(s): J06.9 - Acute upper respiratory infection, unspecified Category: Medical Plan: Likely viral in nature. Unable to test for COVID, flu, RSV. However, recommendation would remain the same. She is given Flonase, Claritin, guaifenesin DM. Recommend rest and ibuprofen or Tylenol as needed as well as increased fluids Plan Routine screening labs as ordered below Referred to senior etl developer, mammogram, colonoscopy Continue following for annual skin exams and use sun protection Annual eye exams Dental exams twice yearly Wear seat belt in car Recommend regular exercise and healthy diet Orders: Orders Basic Metabolic Panel Today Z00.00 - Encounter for general adult medical examination without abnormal findings Hemoglobin A1c Today Z00.00 - Encounter for general adult medical examination without abnormal findings Lipid Panel Today Z00.00 - Encounter for general adult medical examination without abnormal findings TSH reflex Free T4 Today Z00.00 - Encounter for general adult medical examination without abnormal findings Vitamin D 25-OH Total Today Z00.00 - Encounter for general adult medical examination without abnormal findings Complete Blood Count Auto Diff Today Z00.00 - Encounter for general adult medical examination without abnormal findings Liver Panel Today Z00.00 - Encounter for general adult medical examination without abnormal findings MM tomosynthesis screening BI Today Z12.31 - Encounter for screening mammogram for malignant neoplasm of breast, Z85.41 - Personal history of malignant neoplasm of cervix uteri Referrals SENIOR BUSINESS DEVELOPMENT ANALYST Referral Z12.4 - Encounter for screening for malignant neoplasm of cervix, Z85.41 - Personal history of malignant neoplasm of cervix uteri Gastroenterology Referral Z12.11 - Encounter for screening for malignant neoplasm of colon, Z86.0109 - Personal history of other colon polyps Medications: New zolpidem 5 mg PO BEDTIME mirtazapine 15 mg PO BEDTIME loperamide (Imodium A-D) administer after each loose stool until symptoms controlled; do not exceed 16 mg per 24 hrs 2 mg PO Q2-4H PRN fluticasone propionate 50 mcg/actuation (Allergy Relief (fluticasone)) administer into each nostril 2 sprays intranasal DAILY 16 grams 1RF loratadine (Allergy Relief (loratadine)) 10 mg PO DAILY 90 caps 1RF dextromethorphan-guaifenesin 10-200 mg/15 mL 10 mL PO Q6H 354 mL 0RF nicotine (polacrilex) (Nicorette) 2 mg buccal Q1H 100 ea 0RF
[2025-08-22 08:18] VITALS: BP 128/76; PULSE 103; RESP 18; TEMP 36.2; O2SAT 97; BMI 20.8
== END 2025-08-22 10:02 | disposition home or self-care (01) ==
LOC: HO.HMCHD 08:06
PROVIDERS: PCP Internal Medicine; Visit Provider Physician Assistant
DX: Z00.00 Encounter for general adult medical examination without abnormal findings (principal); F32.A Depression, unspecified; E78.00 Pure hypercholesterolemia, unspecified; Z85.41 Personal history of malignant neoplasm of cervix uteri; J06.9 Acute upper respiratory infection, unspecified

== ENCOUNTER → 2025-08-22 08:06 | Outpatient (BNVA) | payer OTHER, SELFPAY | PROVIDERS: PCP Internal Medicine; Visit Provider Physician Assistant | DX: Z00.00 Encounter for general adult medical examination without abnormal findings (principal); F32.A Depression, unspecified; E78.00 Pure hypercholesterolemia, unspecified; J06.9 Acute upper respiratory infection, unspecified; Z85.41 Personal history of malignant neoplasm of cervix uteri; Z13.31 Encounter for screening for depression; Z13.39 Encounter for screening examination for other mental health and behavioral disorders | CPT/HCPCS: 96127; 99386 ==